=== PATIENT | female | born 1940 | race Caucasian/White ===

== ENCOUNTER 2020-12-31 01:16 | Emergency (ER) | payer MEDICARE ==
[~2020-12-31] VITALS: Ht 167.6 cm; Wt 86.2 kg
[2020-12-31] MEDS ORDERED: FOSAMAX 70 MG T70 MG PO (01:45)
[2020-12-31] MEDS ORDERED: LIPITOR40 MG PO (01:46)
[2020-12-31] MEDS ORDERED: DILTIAZEM ER180 M2 PO (01:46)
[2020-12-31] MEDS ORDERED: DOXEPIN 10 MG C10 M1 PO (01:46)
[2020-12-31] MEDS ORDERED: ELIQUIS5 MG PO (01:47)
[2020-12-31] MEDS ORDERED: NEURONTIN300 MG PO (01:47)
[2020-12-31] MEDS ORDERED: SERTRALINE HCL100 MG PO (01:48)
[2020-12-31] MEDS ORDERED: OMEPRAZOLE40 MG PO (01:48)
[2020-12-31] MEDS ORDERED: MYRBETRIQ50 MG PO (01:48)
[2020-12-31] MEDS ORDERED: TIZANIDINE HCL2 M1 PO (01:49)
[2020-12-31] MEDS ORDERED: SPIRONOLACTONE50 MG PO (01:49)
[2020-12-31] MEDS ORDERED: ULTRAM 50MG TAB50 MG PO (01:50)
[2020-12-31] MEDS ORDERED: DUPIXENT300 MG/2 M SUBQ (01:51)
[2020-12-31] MEDS ORDERED: XYZAL5 MG PO (01:52)
[2020-12-31] MEDS ORDERED: NASACORT10.8 ML NASAL (01:52)
[2020-12-31] MEDS ORDERED: HYDROXYZINE HCL25 M2 PO (01:52)
[2020-12-31] MEDS ORDERED: ALAVERT10 M1 PO (01:53)
[2020-12-31] MEDS ORDERED: METAMUCIL660 GM PO (01:54)
[2020-12-31] MEDS ORDERED: SUPER THERAVIT1 EACH PO (01:55)
[2020-12-31] MEDS ORDERED: VITAMIN B122500 MCG PO (01:56)
[2020-12-31] MEDS ORDERED: CALCIUM500 MG PO (01:57)
[2020-12-31] MEDS ORDERED: B COMPLEX1 EACH PO (01:57)
[2020-12-31] MEDS ORDERED: CRANBERRY200 MG PO (01:58)
[2020-12-31] MEDS ORDERED: VITAMIN D31250 MC1 PO (01:58)
[2020-12-31] MEDS ORDERED: MAGNESIUM250 M1 PO (01:58)
[2020-12-31] MEDS ORDERED: TURMERIC500 M2 PO (01:59)
[2020-12-31] MEDS ORDERED: KLOR-CON 10 ER10 MEQ PO (01:59)
[2020-12-31] MEDS ORDERED: PRESERVISION A1 EACH PO (01:59)
[2020-12-31 02:41] LABS: INR 1.1; PROTIME 11.7 Seconds (9.20-11.50)
[2020-12-31] MEDS ORDERED: DOXYCYCLINE 10100 MG PO (03:28)
[2020-12-31 03:49] VITALS: BP 153/63
== END 2020-12-31 03:50 | disposition home or self-care (01) ==
LOC: M.ERS 01:16
PROVIDERS: Personal Emergency Response Attendant
DX: L03.116 Cellulitis of left lower limb (principal); I10 Essential (primary) hypertension; K21.9 Gastro-esophageal reflux disease without esophagitis; Z88.5 Allergy status to narcotic agent; Z79.899 Other long term (current) drug therapy; Z88.8 Allergy status to other drugs, medicaments and biological substances; Z88.2 Allergy status to sulfonamides; Z98.890 Other specified postprocedural states